=== PATIENT | female | born 1940 | race Caucasian/White ===

== ENCOUNTER 2020-10-11 14:00 | Emergency (ER) | payer OTHER ==
[2020-10-11] MEDS ORDERED: SODIUM CHLORIDE 0.9% 1000ML 1,000 ML IV ONE (14:53)
[2020-10-11 14:54] LABS: APPEARANCE,URINE CLEAR (CLEAR); BILIRUBIN,URINE SMALL (NEGATIVE); COLOR,URINE YELLOW (YELLOW); GLUCOSE, URINE (UA) NEGATIVE (NEGATIVE); KETONES,URINE NEGATIVE (NEGATIVE); LEUKOCYTE ESTERASE ,URINE NEGATIVE (NEGATIVE); NITRATE,URINE NEGATIVE (NEGATIVE); OCCULT BLOOD,URINE TRACE-LYSED (NEGATIVE); PROTEIN,URINE NEGATIVE (NEGATIVE); UROBILINOGEN,URINE 0.2 mg/dL (0.2-1.0)
[2020-10-11] MEDS ORDERED: KETOROLAC TROMETHAMINE 30MG/ML ONE (14:54)
[2020-10-11] MEDS ORDERED: ONDANSETRON HCL 4 MG/2 ML VIAL ONE (14:55)
[2020-10-11 14:59] LABS: BASOPHILS % (AUTO) 0.7 % (0.0-5.0); HEMATOCRIT 32.4 % (36-48); MEAN CORPUSCULAR HEMOGLOBIN 30.1 pg (27.0-33.0); MEAN CORPUSCULAR VOLUME 88.5 fL (79-99); NEUTROPHILS % (AUTO) 58.1 % (40.0-77.0); PLATELET COUNT (AUTO) 257 K/uL (130-400); RED BLOOD CELL COUNT(AUTO) 3.66 MIL/uL (4.00-5.50); RED CELL DISTRIBUTION WIDTH 12.7 % (11.0-15.5); WHITE BLOOD COUNT (AUTO) 5.5 K/uL (4.8-10.8)
[2020-10-11 15:09] LABS: BACTERIA,URINE Rare /HPF (None Seen); RBC,URINE 0-1 /HPF (0-1); WBC,URINE None Seen /HPF (0-1)
[2020-10-11 15:10] LABS: CREATININE 1.1 mg/dL (0.5-1.5); POTASSIUM 4.8 mmol/L (3.5-5.1)
[2020-10-11 15:10] LABS: SQUAMOUS EPITHELIAL CELL,UR 0-2 /HPF (0-2)
[2020-10-11 15:14] LABS: ALBUMIN 3.8 g/dL (3.5-5.0); BILIRUBIN,TOTAL 0.4 mg/dL (0.2-1.0); TOTAL PROTEIN, SERUM 7.5 g/dL (6.0-8.3)
[2020-10-11] MEDS ORDERED: CEFTRIAXONE SODIUM 1 GM ONE (15:41)
== END 2020-10-11 16:21 | disposition home or self-care (01) ==
LOC: EDH 14:00
DX: N20.0 Calculus of kidney (principal); N30.90 Cystitis, unspecified without hematuria; N28.1 Cyst of kidney, acquired; I10 Essential (primary) hypertension; E78.00 Pure hypercholesterolemia, unspecified; E87.1 Hypo-osmolality and hyponatremia
CPT/HCPCS: 36415; 74176; 80053; 81001; 83690; 85025; 96361; 96365; 96375; 99284; J0696; J1885; J2405; J7030